=== PATIENT | female | born 2000 | race Caucasian/White ===

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

== ENCOUNTER 2019-10-14 11:56 | Emergency (ER) | payer MEDICAID, OTHER ==
[~2019-10-14] VITALS: Ht 152.4 cm; Wt 45.5 kg
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
[2019-10-14 12:45] LABS: BILIRUBIN,URINE NEGATIVE (NEG); CLARITY,URINE TURBID; COLOR,URINE YELLOW; NITRITE,URINE NEGATIVE (NEG); PH,URINE 7.5 (<5.0-8.0); PROTEIN,URINE NEGATIVE (NEG-TRACE); UROBILINOGEN,URINE 0.2 mg/dL (0.2 mg/dL)
[2019-10-14 12:52] LABS: SQUAMOUS EPITHELIAL CELL,UR MANY /LPF
[2019-10-14 12:53] LABS: AMORPHOUS SEDIMENT,UR PRESENT /HPF; BACTERIA,URINE 0 /HPF (0-FEW)
[2019-10-14 13:14] LABS: BASO # 0.1 x10^3/uL (0.0-0.2); BASO % 1 % (0-3); EOS # 0.1 x10^3/uL (0.0-0.7); EOS % 1 % (0-3); HEMATOCRIT 35.9 % (36.0-47.0); HEMOGLOBIN 12.6 g/dL (12.0-15.5); LYMPH # 1.6 x10^3/uL (1.0-4.8); LYMPH % 13 % (24-48); MEAN CORPUSCULAR HEMOGLOBIN 32 pg (25-35); MEAN CORPUSCULAR HGB CONC 35 g/dL (31-37); MEAN CORPUSCULAR VOLUME 90 fL (79-100); MONO # 0.5 x10^3/uL (0.0-1.1); MONO % 4 % (0-9); NEUT # 9.6 x10^3/uL (1.8-7.7); NEUT % 81 % (31-73); PLATELET COUNT 264 x10^3/uL (140-400); RED BLOOD COUNT 3.97 x10^6/uL (3.50-5.40); RED CELL DISTRIBUTION WIDTH 13.4 % (11.5-14.5); WHITE BLOOD COUNT 11.8 x10^3/uL (4.0-11.0)
--- NOTE | 2019-10-14 13:25 | RAD ---
Examination: PREG MORE THAN OR EQ TO 14 WKS History: Reason: 14 weeks and vag bleed / Spl. Instructions: / History: Comparison/Correlation: None Findings: OB ultrasound exam was performed. Intrauterine gestation is present with heart rate of 137 bpm. motion and cardiac motion is evident. Transverse lie is present. No subchorionic hemorrhage. Amniotic fluid index is normal measuring 11.8 cm. Placenta is fundal in location. Cervical length is 4.29 cm. Biparietal diameter is 2.55 cm corresponding to 14 weeks 3 days. Head circumference is 9.56 cm corresponding to 14 weeks 3 days. Abdominal circumference is 8.25 cm A 14 weeks 4 days. Femur length is 1.11 cm corresponding to 13 weeks 2 days. Average ultrasound age is 14 weeks 1 days with EDC of 04/12/2020. Maternal cervical length is 4.29 cm. Impression: Single living intrauterine gestation corresponding to 14 weeks 1 day gestation by average ultrasound age. No subchorionic hemorrhage or other suspicious process. Electronically signed by: Jorden David MD (10/14/2019 1:22 PM) [id number]
[2019-10-14 13:28] LABS: CALCIUM 8.3 mg/dL (8.5-10.1); CREATININE 0.5 mg/dL (0.6-1.0); GFR 157.3
[2019-10-14 13:33] LABS: ALBUMIN 3.1 g/dL (3.4-5.0); TOTAL BILIRUBIN 0.1 mg/dL (0.2-1.0); TOTAL PROTEIN 6.3 g/dL (6.4-8.2)
[2019-10-14 13:36] LABS: PROTHROMBIN TIME PATIENT 13.2 SEC (11.7-14.0)
[2019-10-14 14:09] VITALS: BP 113/72
== END 2019-10-14 14:35 | disposition home or self-care (01) ==
LOC: ER 11:56
DX: O46.91 Antepartum hemorrhage, unspecified, first trimester (principal); Z98.890 Other specified postprocedural states; Z3A.14 14 weeks gestation of pregnancy
CPT/HCPCS: 36415; 76805; 80053; 81001; 81025; 84702; 85025; 85610; 86850; 86900; 86901; 87086; 99285

== ENCOUNTER 2019-12-08 16:03 | Observation (INO) | payer MEDICAID ==
[2019-12-08] MEDS ORDERED: IV RINGERS,LACTATED 1000ML 1,000 ML IV SCH (16:24)
[2019-12-08 16:54] LABS: BILIRUBIN,URINE NEGATIVE (NEG); CLARITY,URINE TURBID; COLOR,URINE YELLOW; NITRITE,URINE NEGATIVE (NEG); PH,URINE 6.5 (<5.0-8.0); PROTEIN,URINE NEGATIVE (NEG-TRACE); UROBILINOGEN,URINE 0.2 mg/dL (0.2 mg/dL)
[2019-12-08 17:00] LABS: AMORPHOUS SEDIMENT,UR PRESENT /HPF; SQUAMOUS EPITHELIAL CELL,UR FEW /LPF
[2019-12-08 17:01] LABS: BACTERIA,URINE 0 /HPF (0-FEW)
[2019-12-08 17:23] LABS: BARBITURATES NEG (NEG); BENZODIAZEPINES NEG (NEG); CANNABINOIDS NEG (NEG); COCAINE NEG (NEG); METHADONE NEG (NEG); OPIATES NEG (NEG); PHENCYCLIDINE NEG (NEG)
[2019-12-08 17:24] LABS: AMPHETAMINE/METHAMPHETAMINE NEG (NEG)
[2019-12-08 17:46] LABS: BASO # 0.1 x10^3/uL (0.0-0.2); BASO % 1 % (0-3); EOS % 0 % (0-3); HEMATOCRIT 32.6 % (36.0-47.0); HEMOGLOBIN 11.6 g/dL (12.0-15.5); LYMPH # 1.5 x10^3/uL (1.0-4.8); LYMPH % 11 % (24-48); MEAN CORPUSCULAR HEMOGLOBIN 32 pg (25-35); MEAN CORPUSCULAR HGB CONC 36 g/dL (31-37); MEAN CORPUSCULAR VOLUME 91 fL (79-100); MONO % 7 % (0-9); NEUT # 11.2 x10^3/uL (1.8-7.7); NEUT % 81 % (31-73); PLATELET COUNT 237 x10^3/uL (140-400); RED BLOOD COUNT 3.59 x10^6/uL (3.50-5.40); WHITE BLOOD COUNT 13.9 x10^3/uL (4.0-11.0)
--- NOTE | 2019-12-08 17:47 | PDOC1 ---
OB - History Hx of Present Care: Limited Care Ultrasounds: Normal mid trimester US Obstetrical Complications: Other (vaginal bleeding) Medical Complications: None Past Family/Social History * Past Medical, Surgical, Family and Obstetric Histories reviewed from chart. Rubella: Unknown RPR/VDRL: Unknown GBS Status: Unknown HBsAG: Unknown OB - Chief Complaint & HPI Date of Admission: Date of Admission: Dec 08, 2019 at 16:03 Chief Complaint/History : 2 Para: 1 EGA: 21 Reason for admission: vaginal bleeding Admission Nurse Assessment Rev: Yes OB - Admission Exam Physical Exam HEENT: Normal Heart: Regular Rate Lungs: Clear Abdomen: Gravid, Non tender, Soft Extremities: No tenderness or swelling Reflexes: Normal Cervical Dilatation: None Effacement: 25% Station: Ballotable Membranes: Intact Accelerations: Accelerations Present Decelerations: No decelerations Contractions on Admission: None Text A: 21 wks IUP Active intermittent bleeding P: Plan for transfer to [facility] for vaginal bleeding and possible PTL. OB sono showed posterior placenta with no evidence placenta previa. EFW 430 gm. Vertex. PILAR SAVAGE Jr, MD Dec 08, 2019 17:47
--- NOTE | 2019-12-08 18:22 | RAD ---
Exam: Ultrasound OB limited Indication: Vaginal bleeding, cramping Technique: Real-time grayscale and color Doppler images of the pelvis were obtained by the department senior it project manager. Comparisons: Ultrasound 10/14/2019 FINDINGS: There is a single live intrauterine gestation with heart rate measured at 126 bpm. measurements as follows: BPD: 4.8 cm corresponding to 20 weeks 5 days Head circumference: 18.5 cm corresponding to 20 weeks 6 days Abdominal circumference: 16.9 cm corresponding to 22 weeks 0 days Femur length: 3.5 cm corresponding to 21 weeks 1 day Gestational age by ultrasound: 21 weeks 1 day Placenta is anterior and normal in appearance. PITA is within normal limits. IMPRESSION: 1. Single live intrauterine gestation with appropriate growth from prior exam measuring approximately 21 weeks 1 day gestation. EDC from prior dating ultrasound is 04/12/2020. Correlate with LMP. 2. Dedicated survey in the nonemergent setting is recommended if not already performed. Electronically signed by: Juan Blackwell MD (12/08/2019 6:19 PM) [id number]
== END 2019-12-08 19:07 | disposition short-term general hospital (02) ==
LOC: 3 SO LND 16:03
PROVIDERS: ADMIT Obstetrics & Gynecology; ATTEND Obstetrics & Gynecology
DX: O26.852 Spotting complicating pregnancy, second trimester (principal); Z3A.21 21 weeks gestation of pregnancy
CPT/HCPCS: 36415; 76815; 80307; 81001; 85025; 86850; 86900; 86901; 87086; G0378; G0379